=== PATIENT | male | born 1975 | race Caucasian/White ===

== ENCOUNTER 2022-05-07 22:54 | Emergency (ER) | payer BC, SELFPAY ==
[2022-05-07] VITALS (9 sets, daily range): BP systolic 109–120; BP diastolic 73–83; PULSE 167–186; RESP 18; TEMP 35.9; O2SAT 95–98; BMI 43.1
--- NOTE | 2022-05-07 23:17 | ED.NURSE ---
started #18 jelco as a saline lock in the RAC infusing 0.9% normal saline one liter now. able to draw the labs from the site and running a ED POC trop with results pending. patient is having some chest pain in the center but denies pain on scale.
--- NOTE | 2022-05-07 23:19 | ED.GENADULT ---
HPI - General Adult General Time Seen by Provider: 23:21 <Pat Clemens MD - Last Filed: 05/21/22 18:07> Date Seen: 05/07/22 <Pat Clemens MD - Last Filed: 05/21/22 18:07> Chief complaint: Arrhythmia/Palpitations <Pat Clemens MD - Last Filed: 05/21/22 18:07> Stated complaint: Tachycardia <Pat Clemens MD - Last Filed: 05/21/22 18:07> Time Seen by Provider: 05/07/22 23:11 <Pat Clemens MD - Last Filed: 05/21/22 18:07> Source: patient, family ( present), RN notes reviewed and old records reviewed <Pat Clemens MD - Last Filed: 05/21/22 18:07> Mode of arrival: ambulatory <Pat Clemens MD - Last Filed: 05/21/22 18:07> Limitations: no limitations <Pat Clemens MD - Last Filed: 05/21/22 18:07> History of Present Illness HPI narrative: Patient is a 46-year-old male with known aberrant ventricular tachycardia coming in with the onset of a fast heart rate at about 10 30 tonight. He was just taking a drink of water. They had COVID about a month ago but it was mild. He otherwise is been healthy with no concerns of illness. The heart being fast is not causing him significant pain, no chest pain. Feels uncomfortable but no pain. Not short of breath. He is verapamil sensitive but he is aware that we do not carry this here. He had come home from a basketball game around 930 or so, did have a snack. Patient has records from [facility] from Dr. Flyod. 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 His ventricular tachycardia has been noted to be followed by initiation of atrial fibrillation. His atrial fibrillation has previously been converted back to sinus rhythm by a cardioversion. <Pat Clemens MD - Last Filed: 05/21/22 18:07> Related Data Home medications: Home Medications Medication Instructions Recorded Confirmed No Known Home Medications 05/07/22 05/07/22 <Pat Clemens MD - Last Filed: 05/21/22 18:07> Allergies/adverse reactions: Allergies Allergy/AdvReac Type Severity Reaction Status Date / Time Penicillins Allergy Mild Rash Verified 05/07/22 23:06 <Pat Clemens MD - Last Filed: 05/21/22 18:07> Exam Const: Vital Signs, click to edit/add: Vital Signs - 24 hr 05/07/22 22:59 05/08/22 00:05 05/08/22 00:25 Temperature 96.7 F L Pulse Rate Pulse Rate [Right Pulse Oximeter] 185 H Respiratory Rate 18 Blood Pressure Blood Pressure [Ri ght Upper Arm] 115/77 111/73 Pulse Oximetry 97 98 Oxygen Delivery Me thod Room Air 05/07/22 23:35 05/08/22 00:26 05/07/22 23:12 Temperature Pulse Rate 186 H Pulse Rate [Right Pulse Oximeter] Respiratory Rate Blood Pressure Blood Pressure [Ri ght Upper Arm] 120/83 100/77 Pulse Oximetry 97 Oxygen Delivery Me thod 05/07/22 23:15 05/07/22 23:30 05/07/22 23:36 Temperature Pulse Rate 180 H 171 H 167 H Pulse Rate [Right Pulse Oximeter] Respiratory Rate Blood Pressure 111/73 Blood Pressure [Ri ght Upper Arm] Pulse Oximetry 96 95 95 Oxygen Delivery Me thod 05/07/22 23:45 05/07/22 23:47 05/07/22 23:59 Temperature Pulse Rate 182 H 169 H 175 H Pulse Rate [Right Pulse Oximeter] Respiratory Rate Blood Pressure 120/83 109/78 Blood Pressure [Ri ght Upper Arm] Pulse Oximetry 98 96 96 Oxygen Delivery Me thod 05/08/22 00:00 05/08/22 00:01 05/08/22 00:15 Temperature Pulse Rate 169 H 183 H 168 H Pulse Rate [Right Pulse Oximeter] Respiratory Rate Blood Pressure 105/61 Blood Pressure [Ri ght Upper Arm] Pulse Oximetry 96 96 95 Oxygen Delivery Me thod 05/08/22 00:17 05/08/22 00:30 05/08/22 00:32 Temperature Pulse Rate 165 H 153 H 156 H Pulse Rate [Right Pulse Oximeter] Respiratory Rate Blood Pressure 100/77 98/71 Blood Pressure [Ri ght Upper Arm] Pulse Oximetry 97 94 93 Oxygen Delivery Me thod 05/08/22 00:40 05/08/22 00:45 05/08/22 00:47 Temperature Pulse Rate 158 H 159 H 163 H Pulse Rate [Right Pulse Oximeter] Respiratory Rate Blood Pressure 92/79 91/70 Blood Pressure [Ri ght Upper Arm] Pulse Oximetry 94 95 94 Oxygen Delivery Me thod 05/08/22 01:00 05/08/22 01:02 05/08/22 01:10 Temperature Pulse Rate 156 H 159 H 157 H Pulse Rate [Right Pulse Oximeter] Respiratory Rate 15 Blood Pressure 91/69 Blood Pressure [Ri ght Upper Arm] Pulse Oximetry 95 93 99 Oxygen Delivery Me thod 05/08/22 01:11 05/08/22 01:15 05/08/22 01:23 Temperature Pulse Rate 165 H 153 H Pulse Rate [Right Pulse Oximeter] Respiratory Rate 11 L 19 21 Blood Pressure 100/74 108/94 H Blood Pressure [Ri ght Upper Arm] Pulse Oximetry 98 98 Oxygen Delivery Me thod <Pat Clemens MD - Last Filed: 05/21/22 18:07> Vital Signs, click to edit/add: Vital Signs - 24 hr 05/07/22 22:59 05/08/22 00:05 05/08/22 00:25 Temperature 96.7 F L Pulse Rate Pulse Rate [Right Pulse Oximeter] 185 H Respiratory Rate 18 Blood Pressure Blood Pressure [Ri ght Upper Arm] 115/77 111/73 Pulse Oximetry 97 98 Oxygen Delivery Me thod Room Air 05/07/22 23:35 05/08/22 00:26 05/07/22 23:12 Temperature Pulse Rate 186 H Pulse Rate [Right Pulse Oximeter] Respiratory Rate Blood Pressure Blood Pressure [Ri ght Upper Arm] 120/83 100/77 Pulse Oximetry 97 Oxygen Delivery Me thod 05/07/22 23:15 05/07/22 23:30 05/07/22 23:36 Temperature Pulse Rate 180 H 171 H 167 H Pulse Rate [Right Pulse Oximeter] Respiratory Rate Blood Pressure 111/73 Blood Pressure [Ri ght Upper Arm] Pulse Oximetry 96 95 95 Oxygen Delivery Me thod 05/07/22 23:45 05/07/22 23:47 05/07/22 23:59 Temperature Pulse Rate 182 H 169 H 175 H Pulse Rate [Right Pulse Oximeter] Respiratory Rate Blood Pressure 120/83 109/78 Blood Pressure [Ri ght Upper Arm] Pulse Oximetry 98 96 96 Oxygen Delivery Me thod 05/08/22 00:00 05/08/22 00:01 05/08/22 00:15 Temperature Pulse Rate 169 H 183 H 168 H Pulse Rate [Right Pulse Oximeter] Respiratory Rate Blood Pressure 105/61 Blood Pressure [Ri ght Upper Arm] Pulse Oximetry 96 96 95 Oxygen Delivery Me thod 05/08/22 00:17 05/08/22 00:30 05/08/22 00:32 Temperature Pulse Rate 165 H 153 H 156 H Pulse Rate [Right Pulse Oximeter] Respiratory Rate Blood Pressure 100/77 98/71 Blood Pressure [Ri ght Upper Arm] Pulse Oximetry 97 94 93 Oxygen Delivery Me thod 05/08/22 00:40 05/08/22 00:45 05/08/22 00:47 Temperature Pulse Rate 158 H 159 H 163 H Pulse Rate [Right Pulse Oximeter] Respiratory Rate Blood Pressure 92/79 91/70 Blood Pressure [Ri ght Upper Arm] Pulse Oximetry 94 95 94 Oxygen Delivery Me thod 05/08/22 01:00 05/08/22 01:02 05/08/22 01:10 Temperature Pulse Rate 156 H 159 H 157 H Pulse Rate [Right Pulse Oximeter] Respiratory Rate 15 Blood Pressure 91/69 Blood Pressure [Ri ght Upper Arm] Pulse Oximetry 95 93 99 Oxygen Delivery Me thod 05/08/22 01:11 05/08/22 01:15 05/08/22 01:23 Temperature Pulse Rate 165 H 153 H Pulse Rate [Right Pulse Oximeter] Respiratory Rate 11 L 19 21 Blood Pressure 100/74 108/94 H Blood Pressure [Ri ght Upper Arm] Pulse Oximetry 98 98 Oxygen Delivery Me thod <Elliot Gonzales MD - Last Filed: 05/08/22 03:46> Documenting provider has reviewed patient's vital signs: yes <Pat Clemens MD - Last Filed: 05/21/22 18:07> Common normals: no apparent distress, oriented x3, no limitations, healthy appearing, alert and well nourished <Pat Clemens MD - Last Filed: 05/21/22 18:07> General appearance: cooperative, comfortable, well kempt and well developed <Pat Clemens MD - Last Filed: 05/21/22 18:07> Nutritional appearance: obese <Pat Clemens MD - Last Filed: 05/21/22 18:07> HENMT: Common normals: normocephalic, head/scalp atraumatic and hearing grossly normal bilaterally <Pat Clemens MD - Last Filed: 05/21/22 18:07> Head and scalp: normocephalic and atraumatic <Pat Clemens MD - Last Filed: 05/21/22 18:07> Eye: Common normals: PERRL, EOMs intact bilaterally, conjunctivae normal and no scleral icterus <Pat Clemens MD - Last Filed: 05/21/22 18:07> Conjunctiva: conjunctiva(e) normal <Pat Clemens MD - Last Filed: 05/21/22 18:07> Pupil: PERRL <Pat Clemens MD - Last Filed: 05/21/22 18:07> Neck & C-Spine: Common normals: full ROM, no lymphadenopathy, supple, no meningeal signs, no JVD and thyroid normal <Pat Clemens MD - Last Filed: 05/21/22 18:07> Thyroid: thyroid normal <Pat Clemens MD - Last Filed: 05/21/22 18:07> Resp: Common normals: normal respiratory effort, no retractions, no use of accessory muscles and clear to auscultation bilaterally <Pat Clemens MD - Last Filed: 05/21/22 18:07> Auscultation: clear to auscultation bilaterally <Pat Clemens MD - Last Filed: 05/21/22 18:07> Cardio: Common normals: no JVD, regular rhythm, S1 normal heart sound, S2 normal heart sound and no murmurs <Pat Clemens MD - Last Filed: 05/21/22 18:07> Rate: tachycardic <Pat Clemens MD - Last Filed: 05/21/22 18:07> Rhythm: regular rhythm <Pat Clemens MD - Last Filed: 05/21/22 18:07> Heart sounds: S1 normal and S2 normal <Pat Clemens MD - Last Filed: 05/21/22 18:07> GI: Common normals: Normal to inspection, nondistended, normoactive bowel sounds present, soft to palpation, non-tender, no hepatosplenomegaly and no masses <Pat Clemens MD - Last Filed: 05/21/22 18:07> Palpation: soft and no hepatosplenomegaly <Pat Clemens MD - Last Filed: 05/21/22 18:07> Extremity: Common normals: no calf tenderness and no pedal edema <Pat Clemens MD - Last Filed: 05/21/22 18:07> Neuro: Common normals: oriented x3 <Pat Clemens MD - Last Filed: 05/21/22 18:07> Sensorium/orientation: alert <Pat Clemens MD - Last Filed: 05/21/22 18:07> Meningeal signs: no meningeal signs <Pat Clemens MD - Last Filed: 05/21/22 18:07> Psych: Appearance: well kempt <Pat Clemens MD - Last Filed: 05/21/22 18:07> Course Course Hospital Course: Patient had some of his medical information relying that he has a known ventricular tachycardia that is wrap on [place] sensitive. We do not have IV verapamil. He also has information that shows that he goes into atrial fibrillation from this rhythm. I will look up his last visit here in the ER. Nursing staff is working on getting IV placement, drying appropriate labs. I will order a chest x-ray. I am going to page Cardiology at [facility] to ask for assistance in recommendations for steps to alleviate his arrhythmia. <Pat Clemens MD - Last Filed: 05/21/22 18:07> Reevaluation(s) Reevaluation #1: Have confirmed with patient that he is on no medications. Reviewed with him a conversation with the payroll and benefits analyst. He is recommending that we try an oral dose of verapamil, higher dosages 240 mg. If it is not starting to work within 30-60 minutes, then we can consider cardioversion. Patient is in agreement with this plan. Did discuss once potentially cardioverted either medically or with electricity, consideration for oral metoprolol or verapamil. He states verapamil has historically made him quite constipated and does not tolerated. He states he never did take the beta-fredi metoprolol before. He remembers that the radio tester recommended the ablation. He is not interested in taking oral medicines. <Pat Clemens MD - Last Filed: 05/21/22 18:07> Time: 23:31 <Pat Clemens MD - Last Filed: 05/21/22 18:07> Reevaluation #2: About an hour after the oral verapamil, patient's heart rate is only down into the 150s. We will plan on setting up for cardioversion. He will be moved to room 8. <Pat Clemens MD - Last Filed: 05/21/22 18:07> Time: 01:02 <Pat Clemens MD - Last Filed: 05/21/22 18:07> Reevaluation #3: Patient had appropriate monitoring, supplemental nasal cannula oxygen in IV fluids started. He was given 100mg of propofol IV. Synchronized cardioversion was given at 200 joules, attempted 3 times without any conversion. Post EKG showing narrow complex tachycardia at 157 beats per minute. He still has the flipped T-waves in lead 1 and aVL, essentially unchanged but just maybe a few beats lower than what he was when he came in. Dr. Gonzales was also present at the 2nd provider for the procedure. Please see his note. Will be calling Cardiology back at [facility]. <Pat Clemens MD - Last Filed: 05/21/22 18:07> Time: 01:23 <Pat Clemens MD - Last Filed: 05/21/22 18:07> 03:44 <Elliot Gonzales MD - Last Filed: 05/08/22 03:46> Additional Reevaluation(s): I assisted Dr. Heard with patient's airway during his failed cardioversion. She then spoke with Dr. Espana who suggested diltiazem 10 mg IV followed by a drip at 5 milligrams/hour. He converted to normal sinus rhythm at approximately 2:45 a.m. and remained in normal sinus rhythm for the next hour. At this point he is discharged home in the care of his . <Elliot Gonzales MD - Last Filed: 05/08/22 03:46> Consultations Consultation #1: Patient is reviewed with Dr. Fang. He last has records from him in 2018, was on 25 mg b.i.d. of metoprolol then. In their records, he recommended trying oral verapamil. We discussed patient's BMI, he recommended 240 mg. If this was not starting to convert her slow him in about 30-60 minutes, then we could consider cardioversion. <Pat Clemens MD - Last Filed: 05/21/22 18:07> Time: 23:26 <Pat Clemens MD - Last Filed: 05/21/22 18:07> Consultation #2: Spoke with Dr. Fang again. He recommended that I talk to electrophysiology on-call. They are paging that physician and will be calling back. <Pat Clemens MD - Last Filed: 05/21/22 18:07> Time: 01:26 <Pat Clemens MD - Last Filed: 05/21/22 18:07> Consultation #3: Spoke with Dr. Espana on-call. He is the radio tester. Reviewed the case. He recommended starting with diltiazem IV. Since we had already you some oral verapamil, recommended a 10 mg IV bolus followed by 5 milligram/hour drip. If that had not slowed and converted him in about an hour so, did recommend 100 mg IV lidocaine bolus. <Pat Clemens MD - Last Filed: 05/21/22 18:07> Time: 02:09 <Pat Clemens MD - Last Filed: 05/21/22 18:07> Vital Signs Vital signs: Initial Vital Signs Temperature 96.7 F L 05/07/22 22:59 Temperature Source Temporal Artery Scan 05/07/22 22:59 Pulse Rate 185 H 05/07/22 22:59 Respiratory Rate 18 05/07/22 22:59 Blood Pressure 115/77 05/07/22 22:59 Blood Pressure Mean 89 05/07/22 22:59 Blood Pressure Position Sitting 05/07/22 22:59 Pulse Oximetry 97 05/07/22 22:59 Oxygen Delivery Method 05/07/22 22:59 Vital Signs Temperature 96.7 F L 05/07/22 22:59 Pulse Rate 185 H 05/07/22 22:59 Respiratory Rate 18 05/07/22 22:59 Blood Pressure 115/77 05/07/22 22:59 Pulse Oximetry 97 05/07/22 22:59 Oxygen Delivery Method 05/07/22 22:59 Temperature 96.7 F L 05/07/22 22:59 Pulse Rate 89 05/08/22 03:45 Respiratory Rate 14 05/08/22 02:30 Blood Pressure 105/72 05/08/22 03:42 Pulse Oximetry 93 05/08/22 03:45 Oxygen Delivery Method 05/07/22 22:59 <Pat Clemens MD - Last Filed: 05/21/22 18:07> Initial Vital Signs Temperature 96.7 F L 05/07/22 22:59 Temperature Source Temporal Artery Scan 05/07/22 22:59 Pulse Rate 185 H 05/07/22 22:59 Respiratory Rate 18 05/07/22 22:59 Blood Pressure 115/77 05/07/22 22:59 Blood Pressure Mean 89 05/07/22 22:59 Blood Pressure Position Sitting 05/07/22 22:59 Pulse Oximetry 97 05/07/22 22:59 Oxygen Delivery Method 05/07/22 22:59 Vital Signs Temperature 96.7 F L 05/07/22 22:59 Pulse Rate 185 H 05/07/22 22:59 Respiratory Rate 18 05/07/22 22:59 Blood Pressure 115/77 05/07/22 22:59 Pulse Oximetry 97 05/07/22 22:59 Oxygen Delivery Method 05/07/22 22:59 Temperature 96.7 F L 05/07/22 22:59 Pulse Rate 89 05/08/22 03:45 Respiratory Rate 14 05/08/22 02:30 Blood Pressure 105/72 05/08/22 03:42 Pulse Oximetry 93 05/08/22 03:45 Oxygen Delivery Method 05/07/22 22:59 <Elliot Gonzales MD - Last Filed: 05/08/22 03:46> Medical Decision Making Medical Records Medical records reviewed: Yes I reviewed the patient's medical records <Pat Clemens MD - Last Filed: 05/21/22 18:07> Medical records narrative: Below from ED visit 02/03/2017. EMERGENCY ROOM COURSE:? Case reviewed with Dr. Smith, [facility] with recommendation to consider trial of adenosine and/or substitute IV Diltiazem at 0.25 mg per kilogram x 1 dose and 0.35 mg per kilogram x 1 dose and consider Diltiazem Drip for conversion. The patient is offered these recommendations and declines the Adenosine. The patient was given 20 mg IV Diltiazem with minimal decrease in heart rate to approximately 150; 10 mg of IV Diltiazem is pending and the patient is started on 5 mg IV Drip in the emergency department. ASSESSMENT: ?Narrow QRS complex, tachycardia consistent with PSVT.? PLAN: ?Further evaluation and management per results of ongoing Diltiazem IV treatment. Condition stable.?? ADDENDUM 02/03/2017 @ 2201 HOURS (ln):? The patient had IV diltiazem at 5 mg IV per hour after the two boluses of 20 and 10 mg IV respectively. With that, the patient?s heart rate slowed to under 100. It revealed underlying atrial fibrillation with rapid ventricular response. Once the diltiazem was stopped, his heart rate gradually crept back up to the 130s to 140s. The patient maintained stable blood pressure. ECG and case reviewed with Dr. Smith, who concurred with recommendation to proceed with DC cardioversion. Risks, benefits, and alternatives to DC cardioversion were explained to the patient and he and his wished to proceed. After FR[employer] monitored anesthesia care with propofol sedation, the patient had successive shocks of 100 joules and then 200 joules synchronized, which resulted in a successful cardioversion to normal sinus rhythm. <Pat Clemens MD - Last Filed: 05/21/22 18:07> Lab Data Lab results reviewed: Yes I reviewed the patient's lab results <Pat Clemens MD - Last Filed: 05/21/22 18:07> Labs: Lab Results 05/07/22 05/07/22 05/07/22 Range/Units 23:16 23:16 23:16 WBC 8.50 (4.50-11.00) K/uL RBC 5.23 (4.30-5.90) m/uL Hgb 15.6 (13.5-17.5) gm/dL Hct 46.0 (37.0-53.0) % MCV 88 (80-100) fL MCH 30 (26-34) pg MCHC 34 (32-36) gm/dL RDW Coeff of Melissa 12.5 (11.5-15.5) % Plt Count 224 (140-440) K/uL Neut % (Auto) 61.2 (42.0-72.0) % Lymph % (Auto) 28.4 (20-44) % Wheeler % (Auto) 9.1 (0.0-11.0) % Eos % (Auto) 0.7 (0.0-7.0) % Baso % (Auto) 0.4 (0.0-3.0) % Neut # (Auto) 5.21 (1.7-7.0) K/uL Lymph # (Auto) 2.41 (0.90-2.90) K/uL Wheeler # (Auto) 0.80 (0.00-0.90) K/UL Eos # (Auto) 0.06 (0.00-0.50) K/uL Baso # (Auto) 0.03 (0.00-0.30) K/uL Sodium 141 (135-149) mmol/L Potassium 3.9 (3.6-5.1) mmol/L Chloride 108 (96-114) mmol/L Carbon Dioxide 23 (20-32) mmol/L BUN 15 (5-24) mg/dL Creatinine 1.0 (0.5-1.5) mg/dL Estimated Creat Clear 109.15 Estimated GFR 93 ml/min Glucose 135 H (60-115) mg/dL Calcium 9.1 (8.4-10.6) mg/dL Magnesium 2.3 (1.5-2.6) mg/dL NT-Pro-B Natriuret Pep < 20 pg/mL SARS-CoV-2 (PCR) (Negative) POC Troponin I (0.01-0.04) ng/ml 05/07/22 05/08/22 Range/Units 23:40 00:04 WBC (4.50-11.00) K/uL RBC (4.30-5.90) m/uL Hgb (13.5-17.5) gm/dL Hct (37.0-53.0) % MCV (80-100) fL MCH (26-34) pg MCHC (32-36) gm/dL RDW Coeff of Melissa (11.5-15.5) % Plt Count (140-440) K/uL Neut % (Auto) (42.0-72.0) % Lymph % (Auto) (20-44) % Wheeler % (Auto) (0.0-11.0) % Eos % (Auto) (0.0-7.0) % Baso % (Auto) (0.0-3.0) % Neut # (Auto) (1.7-7.0) K/uL Lymph # (Auto) (0.90-2.90) K/uL Wheeler # (Auto) (0.00-0.90) K/UL Eos # (Auto) (0.00-0.50) K/uL Baso # (Auto) (0.00-0.30) K/uL Sodium (135-149) mmol/L Potassium (3.6-5.1) mmol/L Chloride (96-114) mmol/L Carbon Dioxide (20-32) mmol/L BUN (5-24) mg/dL Creatinine (0.5-1.5) mg/dL Estimated Creat Clear Estimated GFR ml/min Glucose (60-115) mg/dL Calcium (8.4-10.6) mg/dL Magnesium (1.5-2.6) mg/dL NT-Pro-B Natriuret Pep pg/mL SARS-CoV-2 (PCR) Negative SARS-CoV-2 (Negative) POC Troponin I 0.00 L (0.01-0.04) ng/ml <Pat Clemens MD - Last Filed: 05/21/22 18:07> Lab Results 05/07/22 05/07/22 05/07/22 Range/Units 23:16 23:16 23:16 WBC 8.50 (4.50-11.00) K/uL RBC 5.23 (4.30-5.90) m/uL Hgb 15.6 (13.5-17.5) gm/dL Hct 46.0 (37.0-53.0) % MCV 88 (80-100) fL MCH 30 (26-34) pg MCHC 34 (32-36) gm/dL RDW Coeff of Melissa 12.5 (11.5-15.5) % Plt Count 224 (140-440) K/uL Neut % (Auto) 61.2 (42.0-72.0) % Lymph % (Auto) 28.4 (20-44) % Wheeler % (Auto) 9.1 (0.0-11.0) % Eos % (Auto) 0.7 (0.0-7.0) % Baso % (Auto) 0.4 (0.0-3.0) % Neut # (Auto) 5.21 (1.7-7.0) K/uL Lymph # (Auto) 2.41 (0.90-2.90) K/uL Wheeler # (Auto) 0.80 (0.00-0.90) K/UL Eos # (Auto) 0.06 (0.00-0.50) K/uL Baso # (Auto) 0.03 (0.00-0.30) K/uL Sodium 141 (135-149) mmol/L Potassium 3.9 (3.6-5.1) mmol/L Chloride 108 (96-114) mmol/L Carbon Dioxide 23 (20-32) mmol/L BUN 15 (5-24) mg/dL Creatinine 1.0 (0.5-1.5) mg/dL Estimated Creat Clear 109.15 Estimated GFR 93 ml/min Glucose 135 H (60-115) mg/dL Calcium 9.1 (8.4-10.6) mg/dL Magnesium 2.3 (1.5-2.6) mg/dL NT-Pro-B Natriuret Pep < 20 pg/mL SARS-CoV-2 (PCR) (Negative) POC Troponin I (0.01-0.04) ng/ml 05/07/22 05/08/22 Range/Units 23:40 00:04 WBC (4.50-11.00) K/uL RBC (4.30-5.90) m/uL Hgb (13.5-17.5) gm/dL Hct (37.0-53.0) % MCV (80-100) fL MCH (26-34) pg MCHC (32-36) gm/dL RDW Coeff of Melissa (11.5-15.5) % Plt Count (140-440) K/uL Neut % (Auto) (42.0-72.0) % Lymph % (Auto) (20-44) % Wheeler % (Auto) (0.0-11.0) % Eos % (Auto) (0.0-7.0) % Baso % (Auto) (0.0-3.0) % Neut # (Auto) (1.7-7.0) K/uL Lymph # (Auto) (0.90-2.90) K/uL Wheeler # (Auto) (0.00-0.90) K/UL Eos # (Auto) (0.00-0.50) K/uL Baso # (Auto) (0.00-0.30) K/uL Sodium (135-149) mmol/L Potassium (3.6-5.1) mmol/L Chloride (96-114) mmol/L Carbon Dioxide (20-32) mmol/L BUN (5-24) mg/dL Creatinine (0.5-1.5) mg/dL Estimated Creat Clear Estimated GFR ml/min Glucose (60-115) mg/dL Calcium (8.4-10.6) mg/dL Magnesium (1.5-2.6) mg/dL NT-Pro-B Natriuret Pep pg/mL SARS-CoV-2 (PCR) Negative SARS-CoV-2 (Negative) POC Troponin I 0.00 L (0.01-0.04) ng/ml <Cain Gonzales, MD - Last Filed: 05/08/22 03:46> Imaging Data Chest x-ray: Attestation: I have reviewed the pertinent imaging results. <Pat Clemens MD - Last Filed: 05/21/22 18:07> My impression: No acute pathology on my preliminary review. <Pat Clemens MD - Last Filed: 05/21/22 18:07> Radiologist's impression: Patient: JOSE LOPEZ Facility:?[facility] Patient ID:?[id number] Site Patient ID:?[id number]. Site :?[id number] Study:?XRay Chest 1V PORTABLE-05/07/2022 11:51:53 PM Ordering Physician:Juana Stewart Final Report: INDICATION: Ventricular tachycardia. TECHNIQUE: Chest 1 view. COMPARISON: None FINDINGS: Cardiovascular and mediastinum: Heart size and vasculature are normal in caliber and appearance. Mediastinum is within normal limits. Lungs and pleural space: Lungs are clear. No sign of infiltrate or mass. No sign of pleural effusion. No pneumothorax. Bones and soft tissues: No significant findings. IMPRESSION: Unremarkable chest. Dictated by Paulino Minor MD @ 05/08/2022 12:19:45 AM (Electronic Signature) <Pat Clemens MD - Last Filed: 05/21/22 18:07> ECG Data Attestation: I personally reviewed and interpreted this ECG as follows: (Narrow complex tachycardia, 180 beats per minute. One in aVL with flipped T-waves in some ST depression.) <Pat Clemens MD - Last Filed: 05/21/22 18:07> Prior ECG tracings: not available for review <Pat Clemens MD - Last Filed: 05/21/22 18:07> Discharge Plan Discharge Clinical Impression: Ventricular tachycardia <Pat Clemens MD - Last Filed: 05/21/22 18:07> Patient Disposition: Home, Self-Care <Pat Clemens MD - Last Filed: 05/21/22 18:07> Condition: Improved <Pat Clemens MD - Last Filed: 05/21/22 18:07> Instructions: Tachycardia (ED) <Pat Clemens MD - Last Filed: 05/21/22 18:07> Additional Instructions: Need to contact [facility] and get back in with the electrophysiology department. You have seen Dr. Floyd before. Should you have recurrent symptoms in the interim, seek re-evaluation. Return to the ER if tachycardia returns. Medication that worked to converted back to sinus rhythm tonight was diltiazem 10 mg IV followed by 5 milligrams/hour. The next medication that was planned was lidocaine 100 mg IV. <Pat Clemens MD - Last Filed: 05/21/22 18:07> Activity Level: Activity as Tolerated <Pat Clemens MD - Last Filed: 05/21/22 18:07> Activity as Tolerated <Elliot Gonzales MD - Last Filed: 05/08/22 03:46> Discharge Diet: Regular <Pat Clemens MD - Last Filed: 05/21/22 18:07> Regular <Elliot Gonzales MD - Last Filed: 05/08/22 03:46> Prescriptions: No Action No Known Home Medications <Pat Clemens MD - Last Filed: 05/21/22 18:07> Follow Up/Referrals: Provider,Not a Local [Primary Care Provider] - <Pat Clemens MD - Last Filed: 05/21/22 18:07> Stand Alone Forms: [facility] Info Instructions <Pat Clemens MD - Last Filed: 05/21/22 18:07>
--- NOTE | 2022-05-07 23:35 | CRLHL7_ITS ---
For Patients: As a result of the Century Cures Act, medical imaging exams and procedure reports are released immediately into your electronic medical record. You may view this report before your referring provider. If you have questions, please contact your health care provider. INDICATION: Ventricular tachycardia. TECHNIQUE: Chest 1 view. COMPARISON: None FINDINGS: Cardiovascular and mediastinum: Heart size and vasculature are normal in caliber and appearance. Mediastinum is within normal limits. Lungs and pleural space: Lungs are clear. No sign of infiltrate or mass. No sign of pleural effusion. No pneumothorax. Bones and soft tissues: No significant findings. IMPRESSION: Unremarkable chest. Dictated by Paulino Minor MD @ 05/08/2022 12:19:45 AM (Electronically Signed)
[2022-05-07 23:49] LABS: Basophils Absolute Auto 0.03 K/uL (0.00-0.30); Basophils Percent Auto 0.4 % (0.0-3.0); Eosinophils Absolute Auto 0.06 K/uL (0.00-0.50); Eosinophils Percent Auto 0.7 % (0.0-7.0); Hemoglobin* 15.6 gm/dL (13.5-17.5); Immature Granulocytes Abs Auto 0.02 K/uL (0.00-0.30); Immature Granulocytes Pct Auto 0.2 %; Lymphocytes Absolute Auto 2.41 K/uL (0.90-2.90); Lymphocytes Percent Auto 28.4 % (20-44); Mean Corpuscular HGB Conc 34 gm/dL (32-36); Mean Corpuscular Hemoglobin 30 pg (26-34); Mean Corpuscular Volume 88 fL (80-100); Monocytes Percent Auto 9.1 % (0.0-11.0); Neutrophils Absolute Auto 5.21 K/uL (1.7-7.0); Neutrophils Percent Auto 61.2 % (42.0-72.0); Platelet Count* 224 K/uL (140-440); RDW Coefficient of Variation % 12.5 % (11.5-15.5); Red Blood Count 5.23 m/uL (4.30-5.90)
[2022-05-07 23:51] LABS: Chloride* 108 mmol/L (96-114); Potassium* 3.9 mmol/L (3.6-5.1); Sodium* 141 mmol/L (135-149)
[2022-05-07] MEDS: VERAPAMIL HCL 240 MG ER TABLET PO (23:52)
[2022-05-07 23:53] LABS: Est. Creatinine Clearance* 109.15; Estimated Glomerular Filt Rate 93 ml/min
[2022-05-07 23:54] LABS: Blood Urea Nitrogen* 15 mg/dL (5-24); Calcium* 9.1 mg/dL (8.4-10.6); Carbon Dioxide* 23 mmol/L (20-32); Glucose* 135 mg/dL (60-115); Magnesium* 2.3 mg/dL (1.5-2.6)
[2022-05-07 23:59] LABS: Slide Review Reflex No
[2022-05-08] VITALS (38 sets, daily range): BP systolic 91–111; BP diastolic 58–94; PULSE 76–183; RESP 11–26; O2SAT 93–99
[2022-05-08 00:04] LABS: NT Pro B Type NatriureticPept* < 20 pg/mL
[2022-05-08 00:37] LABS: SARS PCR* Negative SARS-CoV-2 (Negative)
--- NOTE | 2022-05-08 01:33 | ED.NURSE ---
Pt transferred to room 8 at 0110 to prepare for cardioversion. Pt placed on telemetry, O2 and end tidal started on patient, fluids started on patient. Pt given 100mg Propofol by doctor at 0118. 0119 200J, 1st shock delivered. No change in rhythm, P161. 0120 200J, 2nd shock delivered. No change in rhythm, P154. 0121 200J, 3rd shock delivered. No change in rhythm, P172.
[2022-05-08] MEDS: PROPOFOL 10 MG/ML INJ 200 MG IVP (02:10)
[2022-05-08] MEDS: 0.9 % SODIUM CHLORIDE 500 ML 500 ML IV (02:11)
[2022-05-08] MEDS: dilTIAZem 5 MG/ML inj 10 MG IVP (02:30)
== END 2022-05-08 03:49 | disposition home or self-care (01) ==
PROVIDERS: Family Medicine; Emergency Provider Family Medicine
DX: I47.20 Ventricular tachycardia, unspecified (principal)
CPT/HCPCS: 36415; 71045; 80048; 83735; 83880; 84484; 85025; 87635; 92960; 93005; 94761; 96374; 99284; 99285; J2704; J7120

== ENCOUNTER 2024-02-13 10:05 | Outpatient (CLI) | payer BC, SELFPAY ==
--- OUTSIDE RECORDS SUMMARY | 2024-02-13 10:08 | XMS_ITS | Continuity of Care Document ---
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 Phone Kade Das Unavailable Unavailab le Allergies, Adverse Reactions, Alerts Substance Reaction Status Criticality Penicillins Skin rash Active No Information Medications Medication Instructions Dosage Effective Dates (start - stop) Status Comments ZEPBOUND (unknown strength) Not Available - Active CYCLOBENZAPRINE HCL (unknown strength) Not Available - Active Procedures Procedure Date Office/Outpatient Visit,[facility] 2023 Advance Directives Directive Yes / No Effective Date File Name No Information Encounters Encounter Description Practice Location Reason(s) For Visit Diagnoses Date Provider Providers Copied on Encounter Office/Outpat ient Visit,[facility], [address], [place], [place], [id number], [place] tel:[phone] [facility] Other intervertebral disc displacement, lumbar region 4 Candy Braun. [facility], [address] [place] [address], [address], [place], [address], [place]. tel:[phone] Referring Provider: Esvin Woods [employer] [address] [place], [address]. tel:[phone] Family History Family Member Type Diagnosis Age At Onset No Information Payers Payer name Insurance type Covered libertarian ID Author[place] tibashir([id number] [place] [id number] Social History Type Description Quantity Date Captured Comments Alcohol Use Details Unknown Caffeine Use Details Unknown Tobacco Use Status Light tobacco smoker 2023 Smoking Status Light tobacco smoker Smoking Tobacco Use Details Cigar: No Details Available Cigar: 0.25 Cigars per day Sex Male Vital Signs Date / Time: Height Weight BMI Pulse Rate Blood Pressure Temperature Respiratory Rate Body Surface Area Head Circumference Head Circ. Percentile Wt./Roberto. Percentile BMI percentile Pulse Ox Inhaled Ox 1:59 PM 74.50 in 172.410 kg (380.10 lbs) 48.1 5 kg/m eter (2) Chief Complaint And Reason For Visit No Information Reason For Referral Reason For Referral No Information Plan Of Treatment Date Type Action Status Appointment Jayant Coyne BOOKED History Of Present Illness Encounter Date Complaint History Of Prese nt Illness No Information Functional Status Date Functional Assessmen t No Information Instructions Date Instruction Additional Infor mation No Information Assessments Type Assessment Date assessment Other intervertebral disc displa cement, lumbar region Patient Care Teams Name Effective Dates (start - stop) Status Members No Information
--- OUTSIDE RECORDS SUMMARY | 2024-02-13 10:08 | XMS_ITS | Clinical Summary ---
Author Organization [facility] Address [place], [place] [address] Care Team Providers Care Rn Call Center Name Role Phone Esvin Woods MD Primary Care Provider + [phone] Allergies Active Allergy Reactions Criticality Noted Date Comments Penicillins Rash 12/08/2006 Childhood reaction. Medications Medication Sig Dispensed Refills Start Date End Date Status polyethylene glycol-electrolyte (GOLYTELY) 236-22.74-6.74 -5.86 gram suspensionIndicati ons:Encounter for screening colonoscopy Drink 2 liters (half the bottle) the day before colonoscopy and 2 liters (remaining prep) 6 hours prior to colonoscopy appointment. 4000 mL 11/28/2023 Active tirzepatide, weight loss, (Zepbound) 2.5 mg/0.5 mL penIndications:Mor bid obesity with BMI of 45.0-49.9, adult (HC),Prediabetes Inject 2.5 mg subcutaneous once weekly. 6 mL 02/09/2024 Active cyclobenzaprine (FLEXERIL) 10 mg tabletIndications: Lumbar radiculopathy Take 1 Tablet (10 mg) by mouth 3 times daily if needed for Muscle Spasm. 30 Tablet 11/28/2023 4 Discontinue d(*Patient states no longer taking) tirzepatide, weight loss, (Zepbound) 2.5 mg/0.5 mL penIndications:Mor bid obesity with BMI of 45.0-49.9, adult (HC),Prediabetes Inject 2.5 mg subcutaneous once weekly. 6 mL 12/15/2023 4 Discontinue d(Reorder (E-cancel not sent)) tirzepatide, weight loss, (Zepbound) 2.5 mg/0.5 mL penIndications:Mor bid obesity with BMI of 45.0-49.9, adult (HC),Prediabetes Inject 2.5 mg subcutaneous once weekly. 6 mL 01/29/2024 Discontinue d(Reorder (E-cancel not sent)) Active Problems Problem Noted Date Diagnosed Date Prediabetes 11/24/2023 Ventricular tachycardia 08/01/2022 Paroxysmal atrial fibrillation 08/01/2022 Morbid obesity with BMI of 45.0-49.9, adult 06/2022 Osteoarthrosis, unspecified whether generalized or localized, ankle and foot 04/05/2009 Plantar fasciitis 03/13/2009 Resolved Problems Problem Noted Date Diagnosed Date Resolved Date Lumbar radiculopathy 11/21/2023 024 Encounters Date Type Department Care Team Description 02/10/2024 11:20 AM SPLUNK ARCHITECT Preop Visit [facility] [address] [place] [address] Esvin Woods MD Preoperative Exam 02/09/2024 Travel 02/06/2024 12:12 PM SPLUNK ARCHITECT - 02/06/2024 11:59 PM SPLUNK ARCHITECT Hospital Encounter [address] [address] Esvin Woods MD Nightingale, Alexandra, PT 02/06/2024 Travel 02/05/2024 Refill [facility] [address] [place] [address] Esvin Woods MD Refill Request (Zepbound) 01/30/2024 12:12 PM CDT - 01/30/2024 11:59 PM CDT Hospital Encounter [address] [address] Esvin Woods MD Nightingale, Alexandra, PT 01/30/2024 Travel 01/23/2024 1:39 PM CDT - 01/23/2024 11:59 PM CDT Hospital Encounter [address] [address] Esvin Woods MD Nightingale, Alexandra, PT 01/23/2024 Travel 01/02/2024 10:37 AM CDT - 01/02/2024 11:59 PM CDT Hospital Encounter [address] [address] Esvin Woods MD Nightingale, Alexandra, PT 01/02/2024 Travel 12/15/2023 1:20 PM CDT Office Visit [facility] [address] [place] [address] Esvin Woods MD Results (Spine MRI results, develop a treatment plan); Immunization/Injecti on 12/15/2023 Travel 12/12/2023 11:58 AM CDT - 12/12/2023 11:59 PM CDT Hospital Encounter [address] [address] Esvin Woods MD Nightingale, Alexandra, PT Lumbar disc herniation with radiculopathy 12/12/2023 Travel 12/11/2023 Telephone [facility] [address] [place] [address] Esvin Woods MD Results (MRI lumbar spine) 12/08/2023 1:15 PM CDT Ancillary Procedure [facility] [address] [facility] [address] [place] [address] 12/08/2023 Travel 11/28/2023 11:05 AM CDT Office Visit [facility] [address] [facility] [address] [place] [address] Kade Ibarra PA Leg Pain/problem (Patient presents to ambulatory urgent care today with C/O having sever nerve pain down his right leg from sciatica to foot./) 11/28/2023 Travel 11/28/2023 Nurse Triage [facility] Back Pain 11/21/2023 10:40 AM CDT Ancillary Procedure [facility] [address] [place] [address] 11/21/2023 10:00 AM CDT Office Visit [facility] [address] [place] [address] Esvin Woods MD Establish Care; Physical; Back Pain (Right foot numbness); Immunization/Injecti on 11/21/2023 Telephone [facility] [address] [place] [address] Stas Betancourt MD Need Meds 11/21/2023 Travel from Last 3 Months Immunizations Name Administration Dates Next Due INFLUENZA, IIV3 PF (AGE >= 6 MO) 12/15/2023 Influenza, IIV3 (Age >=3 years) 12/25/2011 Influenza, IIV4 02/15/2022,02/26/2021 Influenza, IIV4 (=>6mos) MDV 12/26/2015 Tdap 11/21/2023 Family History Medical History Relation Name Comments Alcoholism Father Relation Name Status Comments Brother Alive Father Mother Alive Social History Tobacco Use Types Packs/Day Years Used Date Smoking Tobacco: Some Days Cigars Smokeless Tobacco: Never Tobacco Cessation:Ready to Q uit: Not Asked; Counseling Given: Not Answered Comments:cigar on occasion Alcohol Use Standard Drinks/Week Comments Yes 2 (1 standard drink = 0.6 oz pur e alcohol) PHQ-2 Answer Date Recorded PHQ-2 TOTAL SCORE 0 11/21/2023 Social Connections Answer Date Recorded Do you often feel lonely or isolated from those around you? 0 11/21/2023 Financial Resource Strain Answer Date R ecorded Difficulty of Paying Living Expenses 3 11/21/2023 Difficulty of Paying Living Expenses Not on file 11/21/2023 Food Insecurity Answer Date Recorded Do you worry your food will run out before you are able to buy more? 1 11/21/2023 Transportation Needs Answer Date Record ed Does lack of transportation keep you from medica l appointments? 1 11/21/2023 Does lack of transportation keep you from work, meetings or getting things that you need? 1 11/21/2023 Housing Stability Answer Date Recorded What is your housing situation today? 1 11/21/2023 Sex and Gender Information Value Date Recorded Sex Assigned at Not on file Gender Identity Not on file Sexual Orientation Not on file Travel History Travel Start Travel End [place] 01/20/2024 01/22/2024 [place] 01/09/2024 01/15/2024 Obstetrics History Last Filed Vital Signs Vital Sign Reading Time Taken Comments Blood Pressure 144/94 02/10/2024 11:54 AM SPLUNK ARCHITECT Pulse 74 02/10/2024 11:28 AM SPLUNK ARCHITECT Temperature 36.6 ??C (97.9 ??F) 11/28/2023 11:18 AM C DT Respiratory Rate 16 11/28/2023 11:18 AM CDT Oxygen Saturation 98% 12/15/2023 1:32 PM CDT Inhaled Oxygen Concentration - - Weight 172.4 kg (380 lb) 02/10/2024 11:28 AM SPLUNK ARCHITECT Height 187 cm (6' 1.62) 02/10/2024 11:28 AM SPLUNK ARCHITECT Body Mass Index 49.29 02/10/2024 11:28 AM SPLUNK ARCHITECT Plan of Treatment Upcoming Encounters Date Type Department Care Team (Late st Contact Info) Description 02/20/2024 12:15 PM SPLUNK ARCHITECT Appointment [address] [address] Thania Bowen, PT [address] [place] [address] 03/05/2024 12:15 PM SPLUNK ARCHITECT Appointment [address] [address] Thania Bowen, PT [address] [place] [address] 03/12/2024 2:30 PM SPLUNK ARCHITECT Appointment [address] [address] Thania Bowen, PT [address] [place] [address] 03/19/2024 2:30 PM SPLUNK ARCHITECT Appointment [facility] [address] [place] [address] Thania Bowen, PT [address] [place] [address] Health Maintenance Due Date Last Done Comments Pneumococcal series for age 6-64 (1 of 2 - PCV) 1980 COVID-19 vaccine series (4 - 2023- season) 2023 02/26/2021, 07/15/2020, 06/24/2020 Depression screening for age 12+ 11/20/2024 11/21/19 24, 11/21/2023 BMI (ht and wt on same day) for age 18+ 02/09/2025 02/10/2024, 11/21/2023, 08/01/2022, Additional history exists Lipids for age 45-75 11/20/2028 11/21/2023 Tetanus booster 11/20/2033 11/21/2023 Colonoscopy through age 75 02/12/2034 02/13/2024 HIV for age 15-65 Completed 11/21/2023 Hepatitis C screening for ag e 18-79 Completed 11/21/2023 Tdap Completed 11/21/2023 Influenza for age 9-49 Completed , 02/15/2022, 02/26/2021, Additional history exists Procedures Procedure Name Priority Date/Time Associated Diagnosis Comments COLONOSCOPY SCREENING Routine 02/13/2024 7:23 AM SPLUNK ARCHITECT Screening for colon cancer MR SPINE LUMBAR WO Routine 12/08/2023 1: 30 PM CDT Lumbar radiculopathy CBC WITH AUTO DIFFERENTIAL Routine 11/21/2023 11:06 AM CDT Morbid obesity with BMI of 45.0-49.9, adult (HC) CBC WITH AUTO DIFFERENTIAL Routine 11/21/2023 11:06 AM CDT Morbid obesity with BMI of 45.0-49.9, adult (HC) HEMOGLOBIN A1C Routine 11/21/2023 11:06 AM CDT Morbid obesity with BMI of 45.0-49.9, adult (HC) COMP METABOLIC PANEL Routine 11/21/2023 11:06 AM CDT Morbid obesity with BMI of 45.0-49.9, adult (HC) ANTI HCV Routine 11/21/2023 11:06 AM CDT Need for hepatitis C screening test ANTI HIV 1/2 Routine 11/21/2023 11:06 AM CDT Encounter for screening for HIV LIPID PANEL W REFLEX MEASURED LDL Routine 11/21/2023 11:06 AM CDT Lipid screening XR SPINE LUMBAR 3 VIEWS Routine 11/21/2023 10:59 AM CDT Lumbar radiculopathy from Last 3 Months Results * MR SPINE LUMBAR WO (12/08/2023 1:30 PM CDT) Anatomical Region Laterality Modality Spine, LUMBAR SPINE Magnetic Res onance 12/09/2023 8:46 AM CDT Narrative 12/09/2023 8:46 AM CDT For Patients: ??As a result of the Cures Act, medical imaging exams and procedure reports are released immediately into your electronic medical record. ??You may view this report before your referring provider. ??If you have questions, please contact your health care provider. Indication: Lumbar radiculopathy; lumbar radiculopathy, symptoms persist with Greater Than 6 wks treatment; weakness right leg L5 radiculopathy Technique: Noncontrast sagittal and axial T1, T2, and sagittal STIR sequences are provided. Comparison: Radiographs 11/21/2023 Findings: There are 5 lumbar type vertebral bodies. No fractures. No prevertebral or paraspinal edema. No aggressive osseous lesions. Anterior osteophytic spurring is most prominent at L4-5. The conus medullaris is normal in signal and location. T12-L1: No significant spinal canal stenosis or neural foramen narrowing. L1-2: No significant spinal canal stenosis or neural foramen narrowing. L2-3: Disc desiccation. Mild annular bulge. No significant spinal canal stenosis or neural foramen narrowing. L3-4: Disc desiccation and mild interspace narrowing. Diffuse disc bulge and central disc protrusion indents the thecal sac without significant spinal canal stenosis. Mild neural foraminal narrowing bilaterally. L4-5: Disc desiccation. Mild disc bulge. No significant spinal canal stenosis. Mild left neural foramen narrowing. No right neural foraminal narrowing. L5-S1: Left central disc extrusion with 1 cm cephalad migration contacts the traversing left S1 nerve roots. Right central disc extrusion with 1.1 cm cephalad migration contributes to moderate right neural foraminal narrowing. Moderate left neural foramen narrowing. Advanced left and moderate right facet arthrosis. Impression: 1. Normal alignment. No acute osseous or ligamentous abnormalities. 2. At L5/S1, bilateral central disc herniations with cephalad migration. Moderate bilateral neural foramen stenosis. 3. Milder degenerative changes at remaining levels. Dictated by Elliot Chen MD @ 12/09/2023 8:46:52 AM (Electronically Signed) Procedure Note Elliot Chen MD - 12/09/2023 For Patients: As a result of the Century Cures Act, medical imagingexams and procedure reports are released immediately into your electronicmedical record. You may view this report before your referring provider.If you have questions, please contact your health care provider. Indication: Lumbar radiculopathy; lumbar radiculopathy, symptoms persist with GreaterThan 6 wks treatment; weakness right leg L5 radiculopathy Technique: Noncontrast sagittal and axial T1, T2, and sagittal STIR sequences areprovided. Comparison: Radiographs 11/21/2023 Findings: There are 5 lumbar type vertebral bodies. No fractures. No prevertebral orparaspinal edema. No aggressive osseous lesions. Anterior osteophyticspurring is most prominent at L4-5. The conus medullaris is normal insignal and location. T12-L1: No significant spinal canal stenosis or neural foramen narrowing. L1-2: No significant spinal canal stenosis or neural foramen narrowing. L2-3: Disc desiccation. Mild annular bulge. No significant spinal canalstenosis or neural foramen narrowing. L3-4: Disc desiccation and mild interspace narrowing. Diffuse disc bulgeand central disc protrusion indents the thecal sac without significantspinal canal stenosis. Mild neural foraminal narrowing bilaterally. L4-5: Disc desiccation. Mild disc bulge. No significant spinal canalstenosis. Mild left neural foramen narrowing. No right neural foraminalnarrowing. L5-S1: Left central disc extrusion with 1 cm cephalad migration contactsthe traversing left S1 nerve roots. Right central disc extrusion with 1.1cm cephalad migration contributes to moderate right neural foraminalnarrowing. Moderate left neural foramen narrowing. Advanced left andmoderate right facet arthrosis. Impression: 1. Normal alignment. No acute osseous or ligamentous abnormalities. 2. At L5/S1, bilateral central disc herniations with cephalad migration.Moderate bilateral neural foramen stenosis. 3. Milder degenerative changes at remaining levels. Dictated by Elliot Chen MD @ 12/09/2023 8:46:52 AM (Electronically Signed) Esvin Woods MD MR * CBC WITH AUTO DIFFERENTIAL (11/21/2023 11:06 AM CDT) WHITE BLOOD COUNT 6.1 4.5 - 11.0 thou/cu mm 11/21/2023 11:11 AM CDT [facility] RED BLOOD COUNT 4.95 4.30 - 5.90 mil/cu mm 11/21/2023 11:11 AM CDT [facility] HEMOGLOBIN 15.3 13.5 - 17.5 g/dL 11/21/2023 11:11 AM CDT [facility] HEMATOCRIT 44.2 37.0 - 53.0 % 11/21/2023 11:11 AM CDT [facility] MCV 89 80 - 100 fL 11/21/2023 11:11 AM CDT [facility] MCH 30.9 26.0 - 34.0 pg 11/21/2023 11:11 AM CDT [facility] MCHC 34.6 32.0 - 36.0 g/dL 11/21/2023 11:11 AM CDT [facility] RDW 13.1 11.5 - 15.5 % 11/21/2023 11:11 AM CDT [facility] PLATELET COUNT 200 140 - 440 thou/cu mm 11/21/2023 11:11 AM CDT [facility] MPV 10.6 6.5 - 11.0 fL 11/21/2023 11:11 AM CDT [facility] % NEUT 53.4 % 11/21/2023 11:11 AM CDT [facility] % LYMPH 35.0 % 11/21/2023 11:11 AM CDT [facility] % MONO 9.3 % 11/21/2023 11:11 AM CDT [facility] % EOS 2.0 % 11/21/2023 11:11 AM CDT [facility] % BASO 0.3 % 11/21/2023 11:11 AM CDT [facility] ABSOLUTE NEUTROPHILS 3.3 1.7 - 7.0 thou/cu mm 11/21/2023 11:11 AM CDT [facility] ABSOLUTE LYMPHOCYTES 2.1 0.9 - 2.9 thou/cu mm 11/21/2023 11:11 AM CDT [facility] ABSOLUTE MONOCYTES 0.6 <0.9 thou/cu mm 11/21/2023 11:11 AM CDT [facility] ABSOLUTE EOSINOPHILS 0.1 <0.5 thou/cu mm 11/21/2023 11:11 AM CDT [facility] ABSOLUTE BASOPHILS 0.0 <0.3 thou/cu mm 11/21/2023 11:11 AM CDT [facility] Blood BLOOD SPECIMEN / Unknown Venipuncture / Unknown 11/21/2023 11:06 AM CDT 11/21/2023 11:06 AM CDT Esvin Woods MD HEMATOLOGY [facility] [address] [place] [address], * HEMOGLOBIN A1C SCREENING (11/21/2023 11:06 AM CDT) HEMOGLOBIN A1C SCREENING 5.9 <=6.4 % 11/21/2023 4:56 PM CDT [facility] Blood BLOOD SPECIMEN / Unknown Venipuncture / Unknown 11/21/2023 11:06 AM CDT 11/21/2023 11:06 AM CDT Narrative [facility] - 11/21/2023 4:56 PM CDT ? (<5.7%) ?Normal ? (5.7% to 6.4%) ? Indicates prediabetes ? (>=6.5%) ? Confirms diabetes Falsely low levels may be seen with: Recent Transfusion, Recent Significant Blood Loss, Hemolytic Diseases, or Falsely elevated levels may be seen with: Untreated Anemias, Splenectomy Esvin Woods MD CHEMISTRY [facility] [address] [place] [address], * (ABNORMAL) LIPID PANEL W REFLEX MEASURED LDL (11/21/2023 11:06 AM CDT) CHOLESTEROL,TOTAL 195 100 - 199 mg/dL 11/21/2023 5:13 PM T [facility] Comment: Cholesterol, Total Reference Ranges Desirable <200 mg/dL Borderline 200-239 mg/dL High >=240 mg/dL TRIGLYCERIDES 149 <150 mg/dL 11/21/2023 5:13 PM T [facility] HDL CHOLESTEROL 39(L) >40 mg/dL 5:13 PM T [facility] NON-HDL CHOLESTEROL 156(H) <145 mg/dl 11/21/2023 5:13 PM T [facility] CHOL/HDL RATIO 5.00(H) <4.50 11/21/2023 5:13 PM T [facility] LDL CHOLESTEROL 126 <=130 mg/dL 11/21/2023 5:13 PM T [facility] VLDL CHOLESTEROL 30 <=30 mg/dL 11/21/2023 5:13 PM CDT [facility] PROVIDER ORDERED STATUS FASTING 11/21/2023 5:13 PM CDT [facility] Blood BLOOD SPECIMEN / Unknown Venipuncture / Unknown 11/21/2023 11:06 AM CDT 11/21/2023 11:06 AM CDT Esvin Woods MD CHEMISTRY Performing Organization Address [facility] Co de Phone Number [facility] [address] [place] [address], [place] * ANTI HCV (11/21/2023 11:06 AM CDT) HEPATITIS C ANTIBODY Non-Reacti ve Non-React homa 11/21/2023 4:50 PM CDT [facility] Comment:Please note, per www .CDC.gov: If a patient is known to be at high risk of HCV infection, or is symptomatic, and the physician's suspicion of HCV infection is high, HCV RNA testing is often employed and is of diagnostic value, even after an initial negative anti-HCV test result. Blood BLOOD SPECIMEN / Unknown Venipuncture / Unknown 11/21/2023 11:06 AM CDT 11/21/2023 11:06 AM CDT Esvin Woods MD SEND OUTS Performing Organization Address [facility] Co de Phone Number [facility] [address] [place] [address], [place] * ANTI HIV 1/2 (11/21/2023 11:06 AM CDT) HIV-1/HIV-2 SCREEN Non-Reacti ve Non-Reacti ve 11/21/2023 4:58 PM CDT [facility] Comment:HIV-1 p24 and HIV-1/ HIV-2 Ab Not Detected. Blood BLOOD SPECIMEN / Unknown Venipuncture / Unknown 11/21/2023 11:06 AM CDT 11/21/2023 11:06 AM CDT Esvin Woods MD SEND OUTS [facility] [address] [place] [address], * (ABNORMAL) COMP METABOLIC PANEL (11/21/2023 11:06 AM CDT) SODIUM 139 136 - 145 mmol/L 11/21/2023 5:13 PM CDT [facility] POTASSIUM 4.3 3.5 - 5.1 mmol/L 11/21/2023 5:13 PM CDT [facility] CHLORIDE 103 98 - 107 mmol/L 11/21/2023 5:13 PM T [facility] CO2,TOTAL 22 22 - 29 mmol/L 11/21/2023 5:13 PM T [facility] ANION GAP 14 5 - 18 11/21/2023 5:13 PM T [facility] GLUCOSE 105(H) 70 - 99 mg/dL 11/21/2023 5:13 PM CDT [facility] CALCIUM 9.3 8.6 - 10.0 mg/dL 11/21/2023 5:13 PM T [facility] BUN 9 6 - 20 mg/dL 11/21/2023 5:13 PM T [facility] CREATININE 1.11 0.70 - 1.20 mg/dL 11/21/2023 5:13 PM T [facility] BUN/CREAT RATIO 8(L) 10 - 20 5:13 PM T [facility] eGFR 81(L) >90 mL/min/1.7 3m2 11/21/2023 5:13 PM T [facility] Comment:As of 2021, eG FR is calculated by the CKD-EPI creatinine equation without race adjustment. ??eGFR can be influenced by muscle mass, exercise, and diet. ??The reported eGFR is an estimation only and is only applicable if the renal function is stable. ALBUMIN 4.2 4.0 - 4.9 g/dL 11/21/2023 5:13 PM CDT [facility] PROTEIN,TOTAL 7.2 6.0 - 8.0 g/dL 11/21/2023 5:13 PM CDT [facility] BILIRUBIN,TOTAL 0.8 0.0 - 1.2 mg/dL 11/21/2023 5:13 PM CDT [facility] ALK PHOSPHATASE 81 40 - 129 IU/L 11/21/2023 5:13 PM CDT [facility] ALT (SGPT) 45 10 - 50 IU/L 11/21/2023 5:13 PM CDT [facility] AST (SGOT) 47 10 - 50 IU/L 11/21/2023 5:13 PM CDT [facility] Blood BLOOD SPECIMEN / Unknown Venipuncture / Unknown 11/21/2023 11:06 AM CDT 11/21/2023 11:06 AM CDT Esvin Woods MD [facility]Y [facility] [address] [address], * XR SPINE LUMBAR 3 VIEWS (11/21/2023 10:59 AM CDT) Anatomical Region Laterality Modality LUMBAR SPINE Computed Radiogr aphy 11/22/2023 11:0 5 AM CDT Impressions 11/22/2023 11:05 AM CDT 1. No acute osseous injuries or abnormalities are noted. Dictated by Bassem Ac MD @ 11/22/2023 11:05:02 AM Dictated by: Bassem Ac MD @ 11/22/2023 11:05:04 (Electronically Signed) Narrative 11/22/2023 11:05 AM CDT For Patients: ??As a result of the Cures Act, medical imaging exams and procedure reports are released immediately into your electronic medical record. ??You may view this report before your referring provider. ??If you have questions, please contact your health care provider. INDICATION: Lumbar radiculopathy TECHNIQUE: Lumbar spine radiograph 3 views COMPARISON: None FINDINGS: The sensitivity and specificity of the exam are severely limited by the patient`s body habitus. Bone: No acute fractures or aggressive bone lesions are identified. Alignment is normal. Disc: Mild degenerative disc disease is seen throughout the lumbar spine. Bilateral facet osteoarthritis noted at L4-5 and L5-S1. Soft tissue: Unremarkable. No radiopaque foreign bodies are seen. Procedure Note Bassem Ac MD - 11/22/2023 For Patients: As a result of the Cures Act, medical imagingexams and procedure reports are released immediately into your electronicmedical record. You may view this report before your referring provider.If you have questions, please contact your health care provider. INDICATION: Lumbar radiculopathy TECHNIQUE: Lumbar spine radiograph 3 views COMPARISON: None FINDINGS: The sensitivity and specificity of the exam are severely limitedby the patient`s body habitus. Bone: No acute fractures or aggressive bone lesions are identified.Alignment is normal. Disc: Mild degenerative disc disease is seen throughout the lumbar spine.Bilateral facet osteoarthritis noted at L4-5 and L5-S1. Soft tissue: Unremarkable. No radiopaque foreign bodies are seen. IMPRESSION: 1. No acute osseous injuries or abnormalities are noted. Dictated by Bassem Ac MD @ 11/22/2023 11:05:02 AM Dictated by: Bassem Ac MD @ 11/22/2023 11:05:04 (Electronically Signed) Esvin Woods MD GENERAL IMAGING from Last 3 Months Advance Directives * Full Code (Latest Code Status on File) Date Activated Date Inactivated Comments 08/19/2022 12:24 PM 08/19/2022 9:59 PM Question Answer Comments Code Status Discussion: Other Care Teams Rn Call Center Relationship Specialty [place] [address] [place] [address] PCP - General Family [facility] 12/12/23
--- NOTE | 2024-02-13 11:12 | W.ANESCHARGE ---
Anesthesia Charges Start Date/Time Anesthesia Start Date: 02/13/24 Anesthesia Start Time: 10:48 Stop Date/Time Anesthesia Stop Date: 02/13/24 Anesthesia Stop Time: 11:09
--- NOTE | 2024-02-13 11:14 | W.ANESCHARGE ---
Anesthesia Charges Start Date/Time Anesthesia Start Date: 02/13/24 Anesthesia Start Time: 10:48 Stop Date/Time Anesthesia Stop Date: 02/13/24 Anesthesia Stop Time: 11:09
== END 2024-02-13 10:06 | disposition home or self-care (01) ==
LOC: OP CLINIC 10:07
PROVIDERS: PCP Family Medicine; Visit Provider Internal Medicine Gastroenterology
DX: Z12.11 Encounter for screening for malignant neoplasm of colon (principal)
CPT/HCPCS: 00812; 45378; J2704

== ENCOUNTER 2024-09-02 13:24 | Outpatient (CLI) | payer BC, SELFPAY | END 2024-09-02 13:25 | disposition home or self-care (01) | LOC: NFLDREF 09-04 08:04 | PROVIDERS: PCP Family Medicine; Referring Provider Family Medicine; Visit Provider Physician Assistant | DX: R30.0 Dysuria (principal); N39.0 Urinary tract infection, site not specified | CPT/HCPCS: 87086 ==

== ENCOUNTER 2025-02-14 12:54 | Outpatient (CLI) | payer BC, SELFPAY ==
--- NOTE | 2025-02-14 13:45 | MR_ITS ---
[facility] [address] [facility] [address] Phone:?[phone] Fax:?[phone] Referring Physician Information: Rashawn Meza M.D. [address] [place] [address] Phone:?[phone] Fax:?[phone] Patient:Chanel Coyne D.O.B:?1975 Sex:?Male Phone:?[phone] [facility] MRN:?[id number] Exam Date:?02/14/2025 EXAM: MRI EXAMINATION OF THE LEFT HIP CLINICAL INFORMATION: Male, 49 years old, with left hip pain. INDICATION: Evaluate for subchondral fracture. PRIOR SURGERY: None reported. PLAIN FILMS: Radiographs dated 01/31/2025. COMPARISONS: No prior MRIs available. TECHNICAL INFORMATION: Using a 1.5T MR scanner and a localizing surface coil: coronals: PD, T2 sagittals: PD, T2 oblique axials: PD straight axials: PDFS coronals: T1, STIR of pelvis and hips SEDATION: None CONTRAST: None FINDINGS: Hip joint: Moderate left hip joint effusion. Moderate generalized thinning the articular cartilage throughout the left hip joint with a 1.4 cm segment of full-thickness chondral loss anterosuperiorly (sagittal PD series 8 image 13). No intra- articular bodies. Labrum: Intrasubstance degeneration and complex tearing of the anterior through posterosuperior labrum (axial PD oblique series 6 images 13-22). No paralabral cyst. Proximal femur: No femoral occult fracture, stress injury, marrow edema or osteonecrosis. Normal femoral head/neck junction offset. No fibrocystic change. Mild-moderate marginal osteophytosis with moderate anterosuperior femoral cam morphology. Acetabulum: Mild marginal osteophytosis with mild-moderate subchondral edema in the periphery and anterior aspect of the acetabulum. No stress/occult fracture. Version: Normal acetabular anteversion. Coverage: Left lateral center edge (CE) angle measures approximately 28? (normal 25?-39?), midline coronal series 4 image 15, corrected for pelvic obliquity. Ligamentum teres: Ligamentum teres is intact and unremarkable. Iliofemoral ligament: The iliofemoral ligament is intact without thickening. Pelvis osseous structures: Sacral ala and sacroiliac joints: No stress/insufficiency fractures or marrow edema/pathology. No demonstrable sacroiliitis. Pubic rami and pubic symphysis: No stress/insufficiency fractures or marrow edema/pathology. Normal alignment without hypertrophy or evidence of ongoing osteitis pubis. Myotendinous structures: Gluteus abductors: Mild gluteus medius & minimus tendinopathy, without tear. Adductors: No demonstrable tendinopathy or strain/tear. Hamstrings: Intact semimembranosus, semitendinosus and biceps femoris tendons, without tendinopathy or tear. Flexors: Intact iliopsoas and rectus femoris, without strain/tear. External rotators: Intact, without demonstrable ischiofemoral impingement. Gluteal aponeurotic fascia and IT band: Unremarkable. Bursae: Mild bilateral greater trochanteric bursitis (coronal STIR series 2 image 20). Intrapelvic contents: Free fluid: No free fluid seen within the pelvis. Pelvic viscera: No discrete intrapelvic mass is identified. Lymph nodes: No lymphadenopathy by MRI size criteria. Neurovascular structures: No discrete cyst, mass or other compression upon the portions visualized of sciatic or femoral nerves. Lumbar spine: The visualized portions of the lower lumbar spine are unremarkable. IMPRESSION: 1. Moderate osteoarthritis of the left hip joint. 2. Broad-based degeneration and convex tearing of the anterior through posterosuperior labrum. 3. Moderate anterosuperior femoral cam morphology. No acetabular retroversion or overcoverage. 4. Mild gluteus medius & minimus tendinopathy, without tear. 5. Mild bilateral greater trochanteric bursitis. 6. No fracture or osseous stress reaction. BC Electronically signed on 02/15/2025 10:49:00 AM by Efrain Ritter M.D.
== END 2025-02-14 12:55 | disposition home or self-care (01) ==
LOC: MRI 12:55
PROVIDERS: PCP Family Medicine; Visit Provider Orthopaedic Surgery
DX: M25.552 Pain in left hip (principal); S73.192A Other sprain of left hip, initial encounter; M70.62 Trochanteric bursitis, left hip
CPT/HCPCS: 73721

== ENCOUNTER 2025-03-17 07:12 | Outpatient (CLI) | payer BC, SELFPAY ==
--- NOTE | 2025-03-17 07:15 | MR_ITS ---
EXAM: MRI of the LEFT KNEE, without contrast CLINICAL INFORMATION: Male, 49 years old, with left knee pain. INDICATION: Evaluate knee pain. PRIOR SURGERY: None reported. PLAIN FILMS: Knee radiographs dated 09/17/2024. COMPARISONS: No prior MRIs available. TECHNICAL INFORMATION: Using a 1.5T MR scanner and a localizing surface coil: sagittals: PD, PDFS coronals: PD, T2FS axials: PD, PDFS SEDATION: None CONTRAST: None FINDINGS: Knee joint: Effusion: Small left knee effusion. Popliteal cyst: None. Loose bodies: Multiple ossific articular bodies are present throughout the left knee joint, large which measures 1.8 x 0.8 x 2.7 cm in the patellofemoral recess. Subcutaneous and extra-articular soft tissues: Unremarkable. Ligaments: ACL: Intact ACL anteromedial and posterolateral bundles, without sprain or tear. PCL: Intact PCL, without acute or chronic injury. MCL: Intact MCL superficial and deep layers, without injury. LCL: Intact LCL, without injury. Posterolateral corner: Mild popliteus tendinopathy, without tear. Biceps femoris, iliotibial band, popliteofibular ligament and lateral gastrocnemius are intact. Posteromedial corner: No posteromedial corner soft tissue injury. Semimembranosus, pes anserine tendons and posterior oblique ligament are without injury, tendinopathy or bursitis. Extensor mechanism: Patellar tendon: Intact, without tendinopathy. Quadriceps tendon: Intact, without tendinopathy. Retinacula: Medial and lateral retinacula are intact. Fat pads: Unremarkable infrapatellar Hoffa's, quadriceps and prefemoral fat pads. Medial compartment: Medial meniscus: Apical free edge and undersurface tearing of the posterior horn and body of the medial meniscus measuring 4.6 cm (sagittal PDFS series 6 images 6-14 and coronal T2FS series 8 images 22-28). Meniscal extrusion measures 10 mm. No parameniscal cyst. Medial femoral condyle & tibial plateau: Broad-based grade III/IV chondromalacia throughout the central, weightbearing aspect of the medial compartment, with moderate marginal osteophytosis. Lateral compartment: Lateral meniscus: Intrasubstance degeneration and low-grade partial tearing of the lateral meniscal posterior root measuring 1.2 cm (sagittal PDFS series 6 images 20-23). No meniscal extrusion or parameniscal cyst. Lateral femoral condyle & tibial plateau: Broad-based grade II/III chondromalacia throughout the central, weightbearing aspect of the lateral compartment, with mild/moderate marginal osteophytosis. Patellofemoral joint: Patella & trochlea: Generalized grade III chondromalacia of the patellofemoral compartment, with moderate marginal osteophytosis. Proximal tibiofibular joint: Unremarkable, without evidence of ligament sprain injury, joint effusion or adjacent marrow edema. Bones: No stress/occult fractures or other marrow edema/pathology. IMPRESSION: 1. Apical free edge and undersurface tearing of the posterior horn and body of the medial meniscus measuring 4.6 cm, with 10 mm of meniscal extrusion. 2. Tricompartmental osteoarthritis of the left knee: -Moderate-advanced osteoarthritis of the medial compartment. -Moderate osteoarthritis of the patellofemoral compartment. -Mild-moderate osteoarthritis of the lateral compartment. 3. Small knee joint effusion with multiple ossific intra-articular bodies throughout the joint, the largest of which measures 1.8 x 0.8 x 2.7 cm and located in the patellofemoral recess. 4. Intrasubstance degeneration and low-grade partial tearing of the lateral meniscal posterior root measuring 1.2 cm. 5. No cruciate or collateral ligament sprain/tear. BC Electronically signed on 03/21/2025 12:00:00 PM by Efrain Ritter M.D.
--- NOTE | 2025-03-17 08:15 | CRLHL7_ITS ---
For Patients: As a result of the Century Cures Act, medical imaging exams and procedure reports are released immediately into your electronic medical record. You may view this report before your referring provider. If you have questions, please contact your health care provider. Indication: Unilateral primary osteoarthritis, left hip Comparison: 02/14/2025, 01/31/2025 Procedure : Informed consent was obtained. The site was marked. Time-out was performed. The skin of the left hip was cleansed with ChloraPrep. A sterile drape was placed. 8 cc of 1 percent lidocaine was administered for superficial anesthesia. Subsequently a 22 gauge spinal needle was introduced into the left hip joint under intermittent fluoroscopic guidance. Injection of 7 cc 1 percent lidocaine and 2 cc 40 milligram/cc Depo-Medrol then performed into the left hip joint. The needle was removed and hemostasis achieved with direct pressure. A dressing was placed. The patient tolerated the procedure well without immediate complication. Total fluoroscopy time 10 seconds. Impression: Successful fluoroscopically guided left hip injection with 80 milligrams of Depo-Medrol Dictated by Elliot Boyd MD @ 03/17/2025 10:17:44 AM (Electronically Signed)
== END 2025-03-17 07:13 | disposition home or self-care (01) ==
PROVIDERS: PCP Family Medicine; Visit Provider Physician Assistant
DX: M25.562 Pain in left knee (principal); S83.242A Other tear of medial meniscus, current injury, left knee, initial encounter; M17.12 Unilateral primary osteoarthritis, left knee; M25.462 Effusion, left knee; M16.12 Unilateral primary osteoarthritis, left hip; M25.552 Pain in left hip
CPT/HCPCS: 20610; 73721; 77002; Q9966